=== PATIENT | male | born 1975 | race American Indian/Alaskan Native ===

== ENCOUNTER 2016-09-04 04:07 | Emergency (ER) | payer SELFPAY ==
[2016-09-04 04:30] VITALS: BP 147/97
[2016-09-04] MEDS ORDERED: TRIPLE ANTIBIOTIC TP ONE (07:26)
--- NOTE | 2016-09-04 07:29 | Emergency Department Report ---
- General Chief complaint: Wound/Laceration Stated complaint: LAC BACK OF RT HEEL Time Seen by Provider: 09/04/16 07:18 Source: patient Mode of arrival: Wheelchair Limitations: No Limitations - History of Present Illness Initial comments: 40-year-old -[place] male with no past medical history comes in states he dropped a metal sign and cut the back of his right heel approximately yesterday about 1900. Patient reports that he is not taking any medications. He is not sure when the last time these had a tetanus. He has no known drug allergies. -: hour(s) (14 ) Time: 19:00 Tetanus Up to Date: unsure Location: R foot Severity scale (0 -10): 10 Quality: burning Improves with: rest Worsens with: movement Associated symptoms: denies other symptoms Treatments Prior to Arrival: bandages - Related Data Allergies Allergy/AdvReac Type Severity Reaction Status Date / Time No Known Allergies Allergy Verified 09/04/16 04:24 Abscess Boil HPI - HPI Chief Complaint: Wound/Laceration Stated Complaint: LAC BACK OF RT HEEL Time Seen by Provider: 09/04/16 07:18 Allergies/Adverse Reactions: Allergies Allergy/AdvReac Type Severity Reaction Status Date / Time No Known Allergies Allergy Verified 09/04/16 04:24 ED Review of Systems ROS: Stated complaint: LAC BACK OF RT HEEL Other details as noted in HPI Constitutional: denies: chills, fever Eyes: denies: eye pain, eye discharge, vision change ENT: denies: ear pain, throat pain Respiratory: denies: cough, shortness of breath, wheezing Cardiovascular: denies: chest pain, palpitations Endocrine: no symptoms reported Gastrointestinal: denies: abdominal pain, nausea, diarrhea Genitourinary: denies: urgency, dysuria Musculoskeletal: denies: back pain, joint swelling, arthralgia Skin: other (wound) Neurological: denies: headache, weakness, paresthesias Psychiatric: denies: anxiety, depression Hematological/Lymphatic: denies: easy bleeding, easy bruising ED Past Medical Hx - Past Medical History Previous Medical History?: No - Surgical History Past Surgical History?: No - Social History Smoking Status: Current Every Day Smoker Substance Use Type: Alcohol ED Physical Exam - General Limitations: No Limitations General appearance: alert, in no apparent distress - Head Head exam: Present: atraumatic, normocephalic - Expanded Lower Extremity Exam Right Ankle exam: Present: full ROM, tenderness, abrasion (right Achilles). Absent: swelling Foot/Toe exam: Present: normal inspection, full ROM. Absent: tenderness, swelling Gait: Positive: antalgic - Neurological Exam Neurological exam: Present: alert, oriented X3 - Skin Skin exam: Present: warm, dry - Expanded Skin Exam Expanded Type of lesion: Present: abrasion (right Achilles) ED Course Vital Signs 09/04/16 04:24 Temperature 98.7 F Pulse Rate 92 H Respiratory 18 Rate Blood Pressure 147/97 O2 Sat by Pulse 96 Oximetry ED Medical Decision Making - Medical Decision Making Patient's been evaluated by this provider in fast track. Based on examination there is no abrasion to the right Achilles. There is no skin to approximate for healing. Discussed with patient that we will clean it place triple antibiotic and put a nonadhesive dressing. Discussed with patient that we will give him a tetanus vaccine. Also discussed with patient that he needs to keep the area clean and dry he can place triple antibiotic with a thin layer. He can return to the emergency room there is any signs of infection such as redness purulent discharge fever. Patient verbalized understanding Critical care attestation.: If time is entered above; I have spent that time in minutes in the direct care of this critically ill patient, excluding procedure time. ED Disposition Clinical Impression: Abrasion of right heel Qualifiers: Encounter type: initial encounter Qualified Code(s): S90.811A - Abrasion, right foot, initial encounter Disposition: DISCHARGED TO HOME OR SELFCARE Is pt being admited?: No Does the pt Need Aspirin: No Condition: Stable Instructions: Abrasion (ED) Additional Instructions: Please keep the wound clean and dry. He can apply a thin layer of triple antibiotic. Return to the emergency room if any signs of infection such as purulent discharge from the wound warm swelling spiking a fever. Otherwise he can follow-up with her primary care provider. Referrals: PRIMARY CARE, [Primary Care Provider] - 3-5 Days Forms: Work/School Release Form(ED), Accompanied Note
[2016-09-04] MEDS ORDERED: BACITRACIN (ED) OINT PACKET TP ONE (07:31)
[2016-09-04] MEDS ORDERED: BOOSTRIX IM ONE (07:31)
[2016-09-04] MEDS ORDERED: TYLENOL #3 PO ONE (07:32)
== END 2016-09-04 07:48 | disposition home or self-care (01) ==
LOC: ED 04:07
DX: S90.811A Abrasion, right foot, initial encounter (principal); F17.200 Nicotine dependence, unspecified, uncomplicated; W04.XXXA Fall while being carried or supported by other persons, initial encounter; Y93.89 Activity, other specified; Y99.9 Unspecified external cause status; Y92.89 Other specified places as the place of occurrence of the external cause
CPT/HCPCS: 90471; 90715; A6250